=== PATIENT | female | born 1990 | race African-American/Black ===

== ENCOUNTER 2025-08-05 12:10 | Emergency (ER) | payer SELFPAY ==
[~2025-08-05] VITALS: Ht 152.4 cm; Wt 49.0 kg
[2025-08-05 12:22] VITALS: TEMP 36.7; O2SAT 100
[2025-08-05] MEDS: LIDOCAINE HCL 1% 20ML VIAL INFIL ONE (13:45)
[2025-08-05] MEDS ORDERED: TETANUS, DIPHTHERIA, PERTUSSIS VAC/PF 0.5ML (>10YR OLD) IM ONE (13:45)
[2025-08-05] MEDS: TETANUS, DIPHTHERIA, PERTUSSIS VAC/PF 0.5ML (>10YR OLD) IM ONE (14:15)
[2025-08-05] MEDS: ACETAMINOPHEN 500MG TABLET PO ONE (14:23)
[2025-08-05] MEDS ORDERED: ACET-2708 MT (14:38)
[2025-08-05 15:05] VITALS: BP 117/22; PULSE 60; RESP 17; O2SAT 99
[2025-08-05] MEDS ORDERED: BO1 TP (15:11)
== END 2025-08-05 15:10 | disposition home or self-care (01) ==
LOC: ER 12:10
DX: S61.213A Laceration without foreign body of left middle finger without damage to nail, initial encounter (principal); X58.XXXA Exposure to other specified factors, initial encounter; Y93.89 Activity, other specified; Y92.89 Other specified places as the place of occurrence of the external cause; Y99.8 Other external cause status
CPT/HCPCS: 90715; 12001; 90471; 99283; J2003; Z7610